=== PATIENT | female | born 1985 | race Caucasian/White ===

== ENCOUNTER 2018-07-29 16:22 | Emergency (ER) | payer OTHER ==
[~2018-07-29] VITALS: Ht 162.6 cm; Wt 85.0 kg
[2018-07-29 16:30] VITALS: Ht 162.6 cm; Wt 85.0 kg
[2018-07-29] MEDS ORDERED: HYDROCODONE/APAP (5/325) TAB PO ONE (19:30)
[2018-07-29] MEDS ORDERED: HYDR-4011 PO (22:01)
[2018-07-29] MEDS ORDERED: NAPR-688 PO (22:01)
[2018-07-29 22:09] VITALS: BP 119/56; PULSE 92; RESP 18
--- NOTE | 2018-07-29 23:12 | ERD ---
ER Documentation Chief Complaint Chief Complaint backpain d/t hit back on tree from tubing - pt able to move legs HPI 33-year-old female presents with back pain status post falling while she was to being in the snow. Patient states that she fell backward on landed on her back. Patient states that she is able to ambulate however has a lot of pain with certain movements. Patient denies saddle anesthesia, bladder or bowel incontinence. She rates the pain moderate to severe. She has taken ibuprofen without any relief ROS All systems reviewed and are negative except as per history of present illness. Medications Home Meds Active Scripts Naproxen* (Naproxen*) 500 Mg Tablet, 500 MG PO BID, #30 TAB Prov:WALKER MOLINA PA-C 07/29/18 Hydrocodone/Acetaminophen ([place] 5-325 Tablet) 1 Each Tablet, 1 TAB PO Q6H PRN for PAIN, #10 TAB Prov:WALKER MOLINA PA-C 07/29/18 Allergies Allergies: Coded Allergies: No Known Allergy (Unverified , 07/29/18) PMhx/Soc History of Surgery: Yes () Anesthesia Reaction: No Hx Neurological Disorder: No Hx Respiratory Disorders: No Hx Cardiac Disorders: No Hx Psychiatric Problems: No Hx Miscellaneous Medical Probl: Yes (HYPOTHYROID) Hx Alcohol Use: Yes (ONCE A WEEK) Hx Substance Use: No Hx Tobacco Use: No Smoking Status: Never smoker Physical Exam Vitals Vital Signs Date Temp Pulse Resp B/P (MAP) Pulse Ox O2 O2 Flow FiO2 Time Delivery Rate 07/29/18 98.6 92 18 119/56 100 Room Air 22:09 (77) 07/29/18 97.6 98 20 108/57 100 16:30 (74) Physical Exam Const: No acute distress Head: Atraumatic Eyes: Normal Conjunctiva ENT: Normal External Ears, Nose and Mouth. Neck: Full range of motion. No meningismus. Resp: Clear to auscultation bilaterally Cardio: Regular rate and rhythm, no murmurs Abd: Soft, non tender, non distended. Normal bowel sounds Skin: No petechiae or rashes Back: Spinal tenderness in the thoracic lumbar region Ext: No cyanosis, or edema Neur: Awake and alert Psych: Normal Mood and Affect Results 24 hrs Laboratory Tests Test 07/29/18 18:26 POC Beta HCG, Qualitative NEGATIVE Current Medications Medications Dose Sig/Price Start Time Status Last (Trade) Ordered Route PRN Stop Time Admin Dose Reason Admin 1 tab ONCE ONCE 07/29/18 DC 07/29/18 Acetaminophen PO 19:30 19:45 / 07/29/18 19:31 Hydrocodone Bitart ([place] (5/325)) Procedures/MDM This is a 33-year-old female presenting to the emergency department with a grade 1 T12 compression fracture from an injury while she was in the snow and falling back while tubing. Signs of cauda equina or neurological deficit. Patient is able to ambulate. Patient was placed in a brace and I have discussed instructed her to follow-up with her orthopedist in the next couple days. CT abdomen and pelvis without contrast was done and showed 25% vertebral body loss which is grade 1 and also mild microtrabecular injury of superior end of L1 as well. Neurovascular tach to be discharged home with return precautions. Prescription for [place] 10 tablets and naproxen was provided LUMBAR XR Acute compression fracture of T12. Further evaluation with CT is recommended. CT ABD AND PELVIS WO CONTRAST 1. Acute/recent nonhealed compression fracture of T12 with anterior wedging and approximately 25% vertebral body height loss. There also appears to be mild microtrabecular injury of the superior endplate of L1 without significant vertebral body height loss. 2. Scattered diverticulosis without evidence of acute diverticulitis. 3. Mild splenomegaly. Departure Diagnosis: Primary Impression: Vertebral fracture Condition: Stable Patient Instructions: Back Fracture (Compression Fracture), Fracture, Vertebral Compression Referrals: [facility] YOU HAVE RECEIVED A MEDICAL SCREENING EXAM AND THE RESULTS INDICATE THAT YOU DO NOT HAVE A CONDITION THAT REQUIRES URGENT TREATMENT IN THE EMERGENCY DEPARTMENT. FURTHER EVALUATION AND TREATMENT OF YOUR CONDITION CAN WAIT UNTIL YOU ARE SEEN IN YOUR DOCTORS OFFICE WITHIN THE NEXT 1-2 DAYS. IT IS YOUR RESPONSIBILITY TO MAKE AN APPOINTMENT FOR FOLOW-UP CARE. IF YOU HAVE A PRIMARY DOCTOR --you should call your primary doctor and schedule an appointment IF YOU DO NOT HAVE A PRIMARY DOCTOR YOU CAN CALL OUR PHYSICIAN REFERRAL HOTLINE AT IF YOU CAN NOT AFFORD TO SEE A PHYSICIAN YOU CAN CHOSE FROM THE FOLLOWING [facility] [address] [facility]. [facility] [address] [facility] [facility] [address] [facility] [address] [facility] [address] [facility]. [facility] [address] Additional Instructions: FOLLOW UP WITH AN ORTHOPEDIC PHYSICIAN IN THE NEXT COUPLE DAYS Return to this facility if you are not improving as expected. Take all medicines as directed. WALKER MOLINA PA-C Jul 29, 2018 23:12
== END 2018-07-29 22:46 | disposition home or self-care (01) ==
LOC: FTE 16:22
DX: S22.080A Wedge compression fracture of T11-T12 vertebra, initial encounter for closed fracture (principal); E03.9 Hypothyroidism, unspecified; W00.9XXA Unspecified fall due to ice and snow, initial encounter; Y92.9 Unspecified place or not applicable
CPT/HCPCS: 72100; 74176; 81025; Z7502; Z7610